=== PATIENT | male | born 2000 | race Two or more races ===

== ENCOUNTER 2024-06-07 10:13 | Emergency (ER) | payer BC, OTHER ==
[~2024-06-07] VITALS: Ht 175.3 cm; Wt 79.4 kg
[2024-06-07] MEDS ORDERED: ONDANSETRON HCL/PF 4 MG/2 ML VIAL ONE ×2 (10:52→14:32)
[2024-06-07] MEDS ORDERED: FAMOTIDINE/PF INJ 20 MG/2 ML VIAL IV ONE (10:53)
[2024-06-07] MEDS ORDERED: MORPHINE SULFATE INJ 4 MG/ML DISP.SYRIN ONE (10:53)
[2024-06-07 11:02] LABS: BASOPHILS % (AUTO) 0.1 % (0.0-2.0); EOSINOPHILS % (AUTO) 0.5 % (0.0-6.0); HEMATOCRIT 47 % (39-51); HEMOGLOBIN 16.3 g/dL (13.5-17.5); LYMPHOCYTES # (AUTO) 0.4 K/uL (0.8-4.8); LYMPHOCYTES % (AUTO) 4.1 % (20.0-44.0); MEAN CORPUSCULAR HEMOGLOBIN 31 PG (26.0-33.0); MEAN CORPUSCULAR HGB CONC 35 g/dl (31.0-36.0); MEAN CORPUSCULAR VOLUME 89 fL (80-96); MONOCYTES # (AUTO) 0.3 K/uL (0.1-1.30); MONOCYTES % (AUTO) 3.7 % (2.0-12.0); NEUTROPHILS # (AUTO) 8.4 K/uL (1.8-8.9); NEUTROPHILS % (AUTO) 91.6 % (43.0-81.0); PLATELET COUNT (AUTO) 141 K/uL (150-450); RED BLOOD CELL COUNT(AUTO) 5.28 MIL/uL (4.5-6.0); WHITE BLOOD COUNT (AUTO) 9.1 K/uL (4.3-11.0)
[2024-06-07] MEDS: IV NS 0.9% 1,000 ML BAG IV ONE (11:04)
[2024-06-07] MEDS: ONDANSETRON HCL/PF 4 MG/2 ML VIAL IVP ONE (11:06)
[2024-06-07] MEDS: FAMOTIDINE/PF INJ 20 MG/2 ML VIAL IV ONE (11:07)
[2024-06-07] MEDS: MORPHINE SULFATE INJ 2 MG/ML DISP.SYRIN IV ONE (11:09)
[2024-06-07 11:12] LABS: CALCIUM, SERUM 9.4 mg/dL (8.5-10.1); POTASSIUM 3.8 mmol/L (3.5-5.1)
[2024-06-07 11:17] LABS: BILIRUBIN,DIRECT 0.3 mg/dL (0.0-0.2); BILIRUBIN,TOTAL 3.1 mg/dL (0.2-1.0); TOTAL PROTEIN, SERUM 7.7 g/dL (6.4-8.2)
[2024-06-07] MEDS ORDERED: IOHEXOL-300 100 ML VIAL IV ONE (12:16)
[2024-06-07] MEDS ORDERED: IV NS 0.9% 250 ML IV ONE (12:16)
[2024-06-07] MEDS ORDERED: CT SWABBABLE VALVE TRANS SET 1 EA INFUS.SET MC ONE (12:16)
[2024-06-07] MEDS ORDERED: DICY10CA37 PO (14:20)
[2024-06-07] MEDS ORDERED: ONDA4TAB11 PO (14:20)
[2024-06-07] MEDS ORDERED: FAMO20TA8 PO (14:20)
[2024-06-07] MEDS: ONDANSETRON HCL/PF - ER 4 MG/2 ML VIAL IV ONE (14:33)
[2024-06-07 14:38] LABS: APPEARANCE,URINE CLEAR (CLEAR); BILIRUBIN,URINE NEGATIVE (NEGATIVE); BLOOD, URINE NEGATIVE Ery/uL (NEGATIVE); COLOR,URINE YELLOW (YELLOW); KETONES,URINE NEGATIVE (NEGATIVE); LEUKOCYTE ESTERASE ,URINE NEGATIVE (NEGATIVE); NITRITE, URINE NEGATIVE (NEGATIVE); PH,URINE 6.5 (5.0-8.0); PROTEIN,URINE NEGATIVE (NEGATIVE); UGLUCOSE NEGATIVE (NEGATIVE); UROBILINOGEN,URINE 0.2 EU/dL (0.2)
[2024-06-07 15:47] VITALS: BP 108/52; TEMP 98.1; O2SAT 99
== END 2024-06-07 15:47 | disposition home or self-care (01) ==
LOC: ER 10:23
DX: K52.9 Noninfective gastroenteritis and colitis, unspecified (principal); R10.84 Generalized abdominal pain; R11.2 Nausea with vomiting, unspecified
CPT/HCPCS: 99285; 74177; 96374; 96375; 96361; 93005; 96376; 85025; 80048; 83690; 80076; 81003; 36415; J2270; J3490; J2405 ×3; J7030; J7050; Q9967

== ENCOUNTER 2024-07-29 19:16 | Emergency (ER) | payer BC ==
[~2024-07-29] VITALS: Ht 175.3 cm; Wt 79.4 kg
[~2024-07-29 19:16] MED LIST: DICY10CA37 PO; FAMO20TA8 PO; ONDA4TAB11 PO
[2024-07-29] MEDS: ONDANSETRON 4 MG TAB.RAPDIS PO ONE (21:30)
[2024-07-29] MEDS: IV NS 0.9% 500 ML IV ONE (21:30)
[2024-07-29 21:42] LABS: APPEARANCE,URINE CLEAR (CLEAR); BILIRUBIN,URINE NEGATIVE (NEGATIVE); BLOOD, URINE NEGATIVE Ery/uL (NEGATIVE); COLOR,URINE YELLOW (YELLOW); KETONES,URINE TRACE mg/dL (NEGATIVE); LEUKOCYTE ESTERASE ,URINE NEGATIVE (NEGATIVE); NITRITE, URINE NEGATIVE (NEGATIVE); PROTEIN,URINE TRACE mg/dl (NEGATIVE); UGLUCOSE NEGATIVE (NEGATIVE); UROBILINOGEN,URINE 0.2 EU/dL (0.2)
[2024-07-29] MEDS ORDERED: ONDANSETRON 4 MG TAB.RAPDIS ONE (21:43)
[2024-07-29 21:46] LABS: BASOPHILS % (AUTO) 0.6 % (0.0-2.0); EOSINOPHILS % (AUTO) 0.1 % (0.0-6.0); HEMATOCRIT 43 % (39-51); HEMOGLOBIN 14.8 g/dL (13.5-17.5); LYMPHOCYTES # (AUTO) 0.2 K/uL (0.8-4.8); LYMPHOCYTES % (AUTO) 3.6 % (20.0-44.0); MEAN CORPUSCULAR HEMOGLOBIN 31 PG (26.0-33.0); MEAN CORPUSCULAR HGB CONC 35 g/dl (31.0-36.0); MEAN CORPUSCULAR VOLUME 90 fL (80-96); MONOCYTES % (AUTO) 18.2 % (2.0-12.0); NEUTROPHILS # (AUTO) 4.3 K/uL (1.8-8.9); NEUTROPHILS % (AUTO) 77.5 % (43.0-81.0); PLATELET COUNT (AUTO) 125 K/uL (150-450); RED BLOOD CELL COUNT(AUTO) 4.74 MIL/uL (4.5-6.0); RED CELL DISTRIBUTION WIDTH 13.1 % (11.5-15.0); WHITE BLOOD COUNT (AUTO) 5.5 K/uL (4.3-11.0)
[2024-07-29 21:53] LABS: CALCIUM, SERUM 8.6 mg/dL (8.5-10.1); CREATININE 1.1 mg/dL (0.6-1.3); POTASSIUM 3.9 mmol/L (3.5-5.1)
[2024-07-29 21:59] LABS: ALBUMIN 4.6 g/dL (3.4-5.0); BILIRUBIN,DIRECT 0.4 mg/dL (0.0-0.2); TOTAL PROTEIN, SERUM 7.4 g/dL (6.4-8.2)
[2024-07-29] MEDS: IV NS 0.9% 1,000 ML BAG IV ONE (22:30)
[2024-07-29 22:31] LABS: ADD URINE CULTURE NO; BACTERIA,URINE 1+ /HPF (None Seen); MUCUS,URINE Few /LPF (None Seen); RBC,URINE NONE SEEN /HPF (0-2); SQUAMOUS EPITHELIAL CELL,UR None Seen /HPF (None Seen); WBC,URINE 0-2 /HPF (0-3)
[2024-07-29] MEDS: ACETAMINOPHEN ES 500 MG TABLET PO ONE (22:36)
[2024-07-29] MEDS ORDERED: ONDA4TAB5 PO (22:37)
[2024-07-29] MEDS ORDERED: ACET-2605 PO (22:37)
[2024-07-29] MEDS ORDERED: ACETAMINOPHEN ES 500 MG TABLET ONE (23:00)
[2024-07-29 23:08] LABS: MONOTEST NEGATIVE (NEGATIVE)
[2024-07-29 23:09] LABS: LYMPHOCYTES % (MANUAL) 2 % (16-48); MONOCYTES % (MANUAL) 14 % (0-11.0); NEUTROPHILS % (MANUAL) 84 (42-76); PLATELET ESTIMATE DECREASED
[2024-07-29 23:20] VITALS: BP 122/68; TEMP 99.9; O2SAT 99
== END 2024-07-29 23:21 | disposition home or self-care (01) ==
LOC: ER 19:17
DX: K52.9 Noninfective gastroenteritis and colitis, unspecified (principal); R11.2 Nausea with vomiting, unspecified; R53.1 Weakness; R55 Syncope and collapse; R94.31 Abnormal electrocardiogram [ECG] [EKG]; Z20.822 Contact with and (suspected) exposure to COVID-19
CPT/HCPCS: 99284; 96360; 87426; 93005; 87804 ×2; 85025; 80048; 83690; 80076; 86308; 81001; 85007; J7040; Q0162